=== PATIENT | female | born 1995 | race Caucasian/White ===

== ENCOUNTER 2017-04-27 15:05 | Emergency (ER) | payer BC ==
[2017-04-27 15:27] VITALS: BP 108/52; PULSE 77; TEMP 98.1
[2017-04-27 15:30] LABS: COLOR BROWN; LEUKOCYTE ESTERASE,URINE 3+ (NEGATIVE); NITRITE,URINE NEGATIVE (NEGATIVE)
[2017-04-27] MEDS ORDERED: CEPHALEXIN 500 MG CAP PO ONE (15:39)
[2017-04-27] MEDS ORDERED: PHENAZOPYRIDINE HCL 200 MG TAB PO ONE (15:39)
--- NOTE | 2017-04-27 15:44 | EDPHY ---
H & P Time Seen by Provider: 04/27/17 15:38 HPI/ROS: HPI Urinary complaints. 21-year-old female by private vehicle. She complains of increased frequency with urination, some hematuria and burning with urination ongoing for 3 days now. No back pain. No fever. No vomiting. ROS: Constitutional: No fever, no chills. No weakness. Respiratory: No cough. No shortness of breath. Cardiac: No chest pain, no palpitations. Gastrointestinal: No abdominal pain, no vomiting, no diarrhea. Genitourinary: As above. Musculoskeletal: No back pain. No neck pain. No myalgias or arthralgias. Skin: No rashes. Neurological: No headache. No focal weakness or altered sensation. Past medical history: Denies. Social history: Nonsmoker. Visiting from [place]. No alcohol. Physical Exam: General Appearance: Alert, no distress. This patient is responding to questions appropriately and in full sentences. This patient appears well- hydrated and well-nourished. Eyes: Pupils equal and round no pallor or injection. No lid edema, erythema or injection. Gastrointestinal: Abdomen is soft and nontender, no masses, bowel sounds normal. No focal tenderness at McBurney's point. No Maldonado sign. Neurological: Motor sensory function is grossly intact. Cranial nerves are normal. Gait is normal. Skin: Warm and dry, no rashes. Musculoskeletal: No CVA tenderness on palpation bilaterally. Extremities are symmetrical. All joints range without pain or impingement. Psychiatric: No agitation. No depression. Database: EKG: Imaging: Procedures: Emergency department course: Vital signs reviewed and are normal. Results of urinalysis and diagnosis of urinary tract infection discussed with her. Her medication allergies have been reviewed. She does have an allergy to penicillins but has had Keflex in the past with no reaction. She was given 500 mg of Keflex in the emergency department and 200 mg of Pyridium. She feels comfortable going home and I feel she is safe for discharge. She will be given prescriptions for these medications. Urine culture has been ordered. Follow-up and return to emergency department precautions reviewed. All of her questions were answered. She was discharged in good condition. Differential Diagnosis: The differential diagnosis on this patient includes but is not limited to urinary tract infection. Pyelonephritis, other serious bacterial infection unlikely. This represents a partial list of diagnoses considered. These considerations are based on history, physical exam, past history, reassessment and diagnostic testing. Smoking Status: Never smoked Constitutional: Initial Vital Signs Temperature (C) 36.7 C 04/27/17 15:20 Heart Rate 77 04/27/17 15:20 Respiratory Rate 18 04/27/17 15:20 Blood Pressure 108/52 L 04/27/17 15:20 O2 Sat (%) 98 04/27/17 15:20 O2 Delivery Mode Room Air Allergies/Adverse Reactions: Penicillins Allergy (Verified 04/27/17 15:21) Home Medications: Medication Instructions Recorded Cephalexin [Keflex (*)] 500 mg PO Q6 5 Days 04/27/17 Lexapro 04/27/17 Phenazopyridine HCl [Pyridium] 200 mg PO TID #10 tab 04/27/17 Wellbutrin Sr 04/27/17 Medical Decision Making - Data Points Laboratory Results: 04/27/17 04/27/17 15:30 15:27 Urine Color BROWN Urine Appearance CLOUDY Urine pH 8.0 H (5.0-7.5) Ur Specific [place] 1.020 (1.002-1.030) Urine Protein 2+ H (NEGATIVE) Urine Ketones NEGATIVE (NEGATIVE) Urine Blood 3+ H (NEGATIVE) Urine Nitrate NEGATIVE (NEGATIVE) Urine Bilirubin POSITIVE H (NEGATIVE) Urine Urobilinogen 0.2 EU EU (0.2-1.0) Ur Leukocyte Esterase 3+ H (NEGATIVE) Urine RBC Pending Urine WBC Pending Ur Epithelial Cells Pending Urine Glucose NEGATIVE (NEGATIVE) Urine Test Pending Departure - Departure Disposition: Home, Routine, Self-Care Clinical Impression: Urinary tract infection Condition: Good Instructions: Urinary Tract Infection in Women (ED) Additional Instructions: Read and follow provided instructions. Follow-up with your primary care physician in 1-2 days for re-evaluation as needed. Because your traveling from out of town I have given you to different referral options. Take medication as prescribed through entire course of treatment. Return to the emergency department for worsening symptoms, back pain, fever, vomiting or other serious concerns. Referrals: [facility]] - As per Instructions Janae Jin MD [Medical Doctor] - As per Instructions Prescriptions: Cephalexin [Keflex (*)] 500 mg PO Q6 5 Days Phenazopyridine HCl [Pyridium] 200 mg PO TID #10 tab
[2017-04-27 15:45] LABS: BACTERIA 1+ /hpf (NONE SEEN); RBC,URINE 50-182 /hpf (0-3); WBC,URINE >182 /hpf (0-3)
[2017-04-27 15:55] VITALS: RESP 20; O2SAT 95
== END 2017-04-27 15:55 | disposition home or self-care (01) ==
LOC: CED 15:05
DX: N39.0 Urinary tract infection, site not specified (principal); B96.20 Unspecified Escherichia coli [E. coli] as the cause of diseases classified elsewhere
CPT/HCPCS: 81003-PO; 81015-PO; 81025-PO